=== PATIENT | male | born 1955 | race Caucasian/White ===

== ENCOUNTER 2016-04-25 12:53 | Emergency (ER) | payer OTHER ==
[~2016-04-25] VITALS: Ht 188 cm; Wt 77.0 kg
[2016-04-25 13:27] LABS: BASOPHIL COUNT 0.1 K/uL (0-0.1); EOSINOPHIL (%) 1.1 % (0-5); EOSINOPHIL COUNT 0.1 K/uL (0-0.3); HEMATOCRIT 44.8 % (38.0-50.0); IMMATURE GRANULOCYTE (%) 0.2 % (0.0-0.7); INSTRUMENT ABS NEUTROPHIL CT 4.9 K/uL; LYMPHOCYTE COUNT 2.4 K/uL (1.0-2.8); MCH 30.5 PG (29.0-34.0); MCV 92.2 FL (86-99); MONOCYTE (%) 7.2 % (3-12); MONOCYTE COUNT 0.6 K/uL (0-0.8); NEUTROPHIL (%) 60.7 % (45-76); NEUTROPHIL COUNT 4.9 K/uL (1.8-6.4); PLATELET COUNT 157 K/uL (156-360); RBC DIS.WIDTH-CV 13.4 % (11.8-14.6); RBC DIS.WIDTH-SD 45.7 % (39-53); RED BLOOD COUNT 4.86 M/uL (4.00-5.50); WHITE BLOOD COUNT 8.1 K/uL (4.1-10.2)
[2016-04-25 13:38] LABS: CHLORIDE 105 mEq/L (99-109); POTASSIUM 4.1 mEq/L (3.7-5.4); SODIUM 140 mEq/L (136-147)
[2016-04-25 13:40] LABS: GLUCOSE 105 mg/dL (70-99)
[2016-04-25 13:41] LABS: ANION GAP 11 MEQ/L (2-14)
[2016-04-25 13:44] LABS: GFR ESTIMATE (CALCULATED) > 59 mL/min/
[2016-04-25 13:45] LABS: UREA NITROGEN (BUN) 15 mg/dL (9-23)
[2016-04-25] MEDS ORDERED: ATENOLOL100 MG PO (15:56)
[2016-04-25 16:28] VITALS: BP 162/97
== END 2016-04-25 16:30 | disposition home or self-care (01) ==
LOC: EME 12:53
PROVIDERS: Emergency Medicine
DX: I10 Essential (primary) hypertension (principal); F17.200 Nicotine dependence, unspecified, uncomplicated
CPT/HCPCS: 71010; 80048; 85025; 93005; 99281; 99285